=== PATIENT | male | born 1945 | race Caucasian/White ===

== ENCOUNTER 2016-11-19 13:44 | Observation (INO) | payer MEDICARE, BC ==
[2016-11-19] MEDS ORDERED: SODIUM CHLORIDE 0.9% 1,000 ML IV STA (16:30)
--- NOTE | 2016-11-19 16:35 | ED ---
General Adult HPI - General Chief complaint: Dizziness Stated complaint: Near-syncope Time Seen by Provider: 11/19/16 16:18 Source: patient, RN notes reviewed Mode of arrival: ambulatory Limitations: no limitations - History of Present Illness Initial comments: Patient is a pleasant 71-year-old male presenting to the emergency department for near syncopal episode. Episode occurred around noon. Patient was sitting watching TV. Patient suddenly felt flushed all over and felt like she was going to pass out. Symptoms lasted for a few seconds then resolved. Patient is currently symptom-free. No history of similar symptoms previously. Patient did have a stress test that was done a month ago and reported as negative to him. No chest pain or palpitations. No dyspnea. No confusion. Patient felt like he couldn't move during the episode. - Related Data Home Medications Medication Instructions Recorded Confirmed Aspirin 81 mg PO DAILY 12/04/14 11/19/16 Ezetimibe [Zetia] 10 mg PO DAILY 12/04/14 11/19/16 Famotidine [Pepcid] 20 mg PO DAILY 12/04/14 11/19/16 Fish Oil/Dha/Epa [Fish Oil 1,200 1 cap PO HS 12/04/14 11/19/16 mg Fish Oil] Folic Acid 400 mcg PO DAILY 12/04/14 11/19/16 Isosorbide Mononitrate ER [Imdur] 60 mg PO DAILY 12/04/14 11/19/16 Metoprolol Tartrate [Lopressor] 12.5 mg PO HS 12/04/14 11/19/16 Multivitamin [Men's Multi-Vitamin] 1 tab PO DAILY 12/04/14 11/19/16 Pravastatin Sodium [Pravachol] 20 mg PO HS 12/04/14 11/19/16 Ubidecarenone [Co Q-10] 200 mg PO DAILY 12/04/14 11/19/16 metFORMIN HCL [Glucophage] 500 mg PO BID 12/04/14 11/19/16 Allergies Allergy/AdvReac Type Severity Reaction Status Date / Time morphine AdvReac BP very low Verified 11/19/16 16:35 Review of Systems ROS Statement: Those systems with pertinent positive or pertinent negative responses have been documented in the HPI. ROS Other: All systems not noted in ROS Statement are negative. Constitutional: Denies: fever Eyes: Denies: eye pain ENT: Denies: ear pain Respiratory: Denies: cough Cardiovascular: Denies: chest pain, palpitations Endocrine: Denies: fatigue Gastrointestinal: Denies: abdominal pain Genitourinary: Denies: dysuria Musculoskeletal: Denies: back pain Skin: Denies: rash Neurological: Denies: headache Past Medical History Past Medical History: Coronary Artery Disease (CAD), Diabetes Mellitus, GERD/ Reflux, Hyperlipidemia, Myocardial Infarction (NM), Osteoarthritis (OA), Prostate Disorder, Skin Disorder, Sleep Apnea/CPAP/BIPAP Additional Past Medical History / Comment(s): chronic sinusitis, gout, skin "breaks" on hands, enlarged prostate, Last Myocardial Infarction Date:: 1982 History of Any Multi-Drug Resistant Organisms: None Reported Past Surgical History: Coronary Bypass/CABG, Heart Catheterization With Stent, Hernia Repair, Orthopedic Surgery Additional Past Surgical History / Comment(s): CABG 1982, waldo cataracts., arthroscopy left knee, solitario's neuroma removed rt foot Past Anesthesia/Blood Transfusion Reactions: Previous Problems w/ Anesthesia Additional Past Anesthesia/Blood Transfusion Reaction / Comment(s): drop in BP after heart cath (from morphine) Date of Last Stent Placement:: 11/16/2005 Past Psychological History: No Psychological Hx Reported Smoking Status: Former smoker Past Alcohol Use History: None Reported Additional Past Alcohol Use History / Comment(s): quit smoking 1982, smoked for approx 30 yrs ago Past Drug Use History: None Reported - Past Family History Mother Family Medical History: Cancer Additional Family Medical History / Comment(s): colon General Exam Limitations: no limitations General appearance: alert, in no apparent distress Head exam: Present: atraumatic Eye exam: Present: normal appearance, PERRL, EOMI. Absent: nystagmus ENT exam: Present: normal oropharynx Neck exam: Present: normal inspection Respiratory exam: Present: normal lung sounds bilaterally Cardiovascular Exam: Present: regular rate, normal rhythm Expanded Peripheral pulses: 2+: Radial (R), Radial (L), Posterior Tibialis (R), Posterior Tibialis (L) GI/Abdominal exam: Present: soft. Absent: tenderness Extremities exam: Present: normal inspection. Absent: pedal edema, calf tenderness Neurological exam: Present: alert, oriented X3, CN II-XII intact. Absent: motor sensory deficit Expanded Patient oriented to: Present: person, place, time Speech: Present: fluid speech Cranial nerves: EOM's Intact: Normal, Facial Sensation: Normal Sensory exam: Upper Extremity Light Touch: Normal, Lower Extremity Light Touch: Normal Motor strength exam: RUE: 5, LUE: 5, RLE: 5, LLE: 5 Eye Response: (4) open spontaneously Motor Response: (6) obeys commands Verbal Response: (5) oriented Psychiatric exam: Present: normal affect, normal mood Skin exam: Present: normal color Course Vital Signs 11/19/16 13:54 Temperature 97.7 F Pulse Rate 74 Respiratory 18 Rate Blood Pressure 127/60 O2 Sat by Pulse 98 Oximetry Medical Decision Making - Medical Decision Making Patient reevaluated and resting comfortably in bed. Patient and family updated on results. Case discussed in detail with Dr. Dr. Carrillo, who will admit his patient. He also did see him in the emergency department. Consult for Dr. Lancaster. Repeat troponins. Patient does present with high suspicion for arrhythmia. Dr. Dr. Carrillo had similar concerns. - Lab Data Result diagrams: 11/19/16 16:22 11/19/16 16:22 Lab Results 11/19/16 11/19/16 11/19/16 Range/Units 16:22 16:22 16:22 WBC 8.7 (3.8-10.6) k/uL RBC 4.69 (4.30-5.90) m/uL Hgb 14.5 (13.0-17.5) gm/dL Hct 42.4 (39.0-53.0) % MCV 90.5 (80.0-100.0) fL MCH 31.0 (25.0-35.0) pg MCHC 34.2 (31.0-37.0) g/dL RDW 12.8 (11.5-15.5) % Plt Count 234 (150-450) k/uL Neutrophils % 56 % Lymphocytes % 28 % Monocytes % 7 % Eosinophils % 4 % Basophils % 1 % Neutrophils # 4.8 (1.3-7.7) k/uL Lymphocytes # 2.4 (1.0-4.8) k/uL Monocytes # 0.6 (0-1.0) k/uL Eosinophils # 0.4 (0-0.7) k/uL Basophils # 0.1 (0-0.2) k/uL PT (9.0-12.0) sec INR (<1.1) APTT (22.0-30.0) sec Sodium 140 (137-145) mmol/L Potassium 4.6 (3.5-5.1) mmol/L Chloride 104 (98-107) mmol/L Carbon Dioxide 24 (22-30) mmol/L Anion Gap 12 mmol/L BUN 16 (9-20) mg/dL Creatinine 0.96 (0.66-1.25) mg/dL Est GFR (MDRD) Af Amer >60 (>60 ml/min/1.73 sqM) Est GFR (MDRD) Non-Af >60 (>60 ml/min/1.73 sqM) Glucose 90 (74-99) mg/dL Calcium 9.5 (8.4-10.2) mg/dL Total Bilirubin 0.7 (0.2-1.3) mg/dL AST 27 (17-59) U/L ALT 35 (21-72) U/L Alkaline Phosphatase 70 (38-126) U/L Total Creatine Kinase 41 L (55-170) U/L CK-MB (CK-2) 0.4 (0.0-2.4) ng/mL CK-MB (CK-2) Rel Index 1.0 Troponin I <0.012 (0.000-0.034) ng/mL Total Protein 7.2 (6.3-8.2) g/dL Albumin 4.4 (3.5-5.0) g/dL Urine Color Urine Appearance (Clear) Urine pH (5.0-8.0) Ur Specific [place] (1.001-1.035) Urine Protein (Negative) Urine Glucose (UA) (Negative) Urine Ketones (Negative) Urine Blood (Negative) Urine Nitrite (Negative) Urine Bilirubin (Negative) Urine Urobilinogen (<2.0) mg/dL Ur Leukocyte Esterase (Negative) 11/19/16 11/19/16 Range/Units 16:22 17:09 WBC (3.8-10.6) k/uL RBC (4.30-5.90) m/uL Hgb (13.0-17.5) gm/dL Hct (39.0-53.0) % MCV (80.0-100.0) fL MCH (25.0-35.0) pg MCHC (31.0-37.0) g/dL RDW (11.5-15.5) % Plt Count (150-450) k/uL Neutrophils % % Lymphocytes % % Monocytes % % Eosinophils % % Basophils % % Neutrophils # (1.3-7.7) k/uL Lymphocytes # (1.0-4.8) k/uL Monocytes # (0-1.0) k/uL Eosinophils # (0-0.7) k/uL Basophils # (0-0.2) k/uL PT 10.1 (9.0-12.0) sec INR 1.0 (<1.1) APTT 24.1 (22.0-30.0) sec Sodium (137-145) mmol/L Potassium (3.5-5.1) mmol/L Chloride (98-107) mmol/L Carbon Dioxide (22-30) mmol/L Anion Gap mmol/L BUN (9-20) mg/dL Creatinine (0.66-1.25) mg/dL Est GFR (MDRD) Af Amer (>60 ml/min/1.73 sqM) Est GFR (MDRD) Non-Af (>60 ml/min/1.73 sqM) Glucose (74-99) mg/dL Calcium (8.4-10.2) mg/dL Total Bilirubin (0.2-1.3) mg/dL AST (17-59) U/L ALT (21-72) U/L Alkaline Phosphatase (38-126) U/L Total Creatine Kinase (55-170) U/L CK-MB (CK-2) (0.0-2.4) ng/mL CK-MB (CK-2) Rel Index Troponin I (0.000-0.034) ng/mL Total Protein (6.3-8.2) g/dL Albumin (3.5-5.0) g/dL Urine Color Light Yellow Urine Appearance Clear (Clear) Urine pH 5.0 (5.0-8.0) Ur Specific [place] 1.008 (1.001-1.035) Urine Protein Negative (Negative) Urine Glucose (UA) Negative (Negative) Urine Ketones Negative (Negative) Urine Blood Negative (Negative) Urine Nitrite Negative (Negative) Urine Bilirubin Negative (Negative) Urine Urobilinogen <2.0 (<2.0) mg/dL Ur Leukocyte Esterase Negative (Negative) - Radiology Data Interpreted by me: Chest x-ray interpreted by myself shows no acute process. Postoperative change. Disposition Clinical Impression: Near syncope Disposition: ADMITTED IP TO THIS HOSP
[2016-11-19 16:54] LABS: Basophils # (A) 0.1 k/uL (0-0.2); Basophils % (A) 1 %; CH 32.2; CHCM 35.7; Eosinophils # (A) 0.4 k/uL (0-0.7); Eosinophils % (A) 4 %; HCT 42.4 % (39.0-53.0); HGB 14.5 gm/dL (13.0-17.5); Luc # (Auto) 0.25; Luc % (Auto) 3; Lymphocytes # (A) 2.4 k/uL (1.0-4.8); Lymphocytes % (A) 28 %; MCHC 34.2 g/dL (31.0-37.0); MCV 90.5 fL (80.0-100.0); Mean Platelet Volume 7.7; Monocytes # (A) 0.6 k/uL (0-1.0); Monocytes % (A) 7 %; Neutrophils # (A) 4.8 k/uL (1.3-7.7); Neutrophils % (A) 56 %; RBC 4.69 m/uL (4.30-5.90); RDW 12.8 % (11.5-15.5); WBC 8.7 k/uL (3.8-10.6); WBC (Perox) 8.46
[2016-11-19 17:05] LABS: ALT 35 U/L (21-72); AST 27 U/L (17-59); Alkaline Phosphatase 70 U/L (38-126); Anion Gap 12 mmol/L; Blood Urea Nitrogen 16 mg/dL (9-20); Calcium 9.5 mg/dL (8.4-10.2); Carbon Dioxide 24 mmol/L (22-30); Chloride 104 mmol/L (98-107); Glucose 90 mg/dL (74-99); Non-African American GFR(MDRD) >60 (>60 ml/min/1.73 sqM); Potassium 4.6 mmol/L (3.5-5.1); Sodium 140 mmol/L (137-145); Total Bilirubin 0.7 mg/dL (0.2-1.3); Total Protein 7.2 g/dL (6.3-8.2)
[2016-11-19 17:20] LABS: Creatine Kinase 41 U/L (55-170)
[2016-11-19 17:21] LABS: Appearance,Urine Clear (Clear); Bilirubin,Urine Negative (Negative); Glucose,Urine (UA) Negative (Negative); Ketones,Urine Negative (Negative); Leukocyte Esterase,Urine Negative (Negative); Nitrite,Urine Negative (Negative); Protein,Urine Negative (Negative); Specific Gravity,Urine 1.008 (1.001-1.035); UA Billing (MACRO vs. MICRO) CHEM; Urobilinogen,Urine <2.0 mg/dL (<2.0)
[2016-11-19 17:24] LABS: Partial Thromboplastin Time 24.1 sec (22.0-30.0); Prothrombin Time 10.1 sec (9.0-12.0)
[2016-11-19 17:31] LABS: Creatine Kinase MB 0.4 ng/mL (0.0-2.4); Troponin I <0.012 ng/mL (0.000-0.034)
[2016-11-19] MEDS ORDERED: NALOXONE 0.4 MG/ML 1 ML VIAL IV PRN (17:42)
[2016-11-19] MEDS ORDERED: SODIUM CHLORIDE 0.9% 1,000 ML IV SCH (17:45)
--- NOTE | 2016-11-19 17:48 | XR ---
EXAMINATION TYPE: XR chest 2V DATE OF EXAM: 11/19/2016 5:24 PM COMPARISON: March 13, 2011 HISTORY: Syncope TECHNIQUE: Frontal and lateral views of the chest are obtained. FINDINGS: Sternal sutures and mediastinal clips and EKG leads are noted. There is no focal air space opacity, pleural effusion, or pneumothorax seen. The cardiac silhouette size is within normal limit s. The osseous structures are intact. IMPRESSION: No acute cardiopulmonary process.
--- NOTE | 2016-11-19 18:18 | CT ---
EXAMINATION TYPE: CT brain wo con DATE OF EXAM: 11/19/2016 6:05 PM COMPARISON: NONE HISTORY: Near syncope today. CT DLP: 1174 mGycm Automated exposure control for dose reduction was used. FINDINGS: There is no acute intracranial hemorrhage, mass effect, or midline shift identified. The ventricles and sulci are within normal limits in size. Atherosclerotic calcifications are noted throughout the anterior circulation and the posterior circul ation bilaterally. The globes are intact and the visualized sinuses are clear. IMPRESSION: NO ACUTE PROCESS.
[2016-11-19 19:20] LABS: Glucose,Whole Blood 84 mg/dL (75-99)
[2016-11-19 21:28] VITALS: BMI 34.9
[2016-11-19] MEDS ORDERED: METOPROLOL TARTRATE 12.5 MG TAB PO SCH (21:45)
[2016-11-19] MEDS ORDERED: PRAVASTATIN SODIUM 20 MG TAB PO SCH (21:45)
[2016-11-19] MEDS: metFORMIN 500 MG TAB PO SCH (22:13)
[2016-11-20 06:49] LABS: Glucose,Whole Blood 110 mg/dL (75-99)
--- NOTE | 2016-11-20 09:10 | US ---
EXAMINATION TYPE: US carotid duplex BILAT DATE OF EXAM: 11/20/2016 8:26 AM COMPARISON: NONE CLINICAL HISTORY: Near-syncope. Patient states almost passing out yesterday and feeling flushed EXAM MEASUREMENTS: RIGHT: Peak Systolic Velocity (PSV) cm/sec ----- Right CCA: 77.9 ----- Right ICA: 72.1 ----- Right ECA: 168.6 ICA/CCA ratio: 0.9 RIGHT: End Diastole cm/sec ----- Right CCA: 17.5 ----- Right ICA: 18.0 ----- Right ECA: 20.9 LEFT: Peak Systolic Velocity (PSV) cm/sec ----- Left CCA: 82.3 ----- Left ICA: 93.1 ----- Left ECA: 117.7 ICA/CCA ratio: 1.1 LEFT: End Diastole cm/sec ----- Left CCA: 9.8 ----- Left ICA: 32.2 ----- Left ECA: 6.3 VERTEBRALS (direction of flow): Right Vertebral: Antegrade Left Vertebral: Antegrade Plaque seen in bilateral bulbs. Plaque seen in proximal ICA. Bilateral wall thickening. Elevated r ight ECA. No significant stenosis seen. Small posterior plaque seen in prox/mid left CCA. IMPRESSION: 1. I do not see evidence of a hemodynamically significant stenosis in either common or internal carot id artery. 2. Elevated flow, right ECA. Criteria for Assigning % of Stenosis / Diameter reduction (Estimation based on the indirect measurements of the internal carotid artery velocities (ICA PSV). 1. Normal (no stenosis)=ICA PSV < 125 cm/s: ratio < 2.0: ICA EDV<40 cm/s. 2. Less than 50% stenosis=ICA PSV < 125 cm/s: ratio < 2.0: ICA EDV<40 cm/s. 3. 50 to 69% stenosis=ICA PSV of 125 to 230 cm/s: ration 2.0 ? 4.0: ICA EDV 40-100 cm/s. 4. Greater than 70% stenosis to near occlusion= ICA PSV > 230 cm/s: ratio > 4.0: ICA EDV > 100 cm/s. 5. Near occlusion= ICA PSV velocities may be low or undetectable: variable ratio and ICA EDV. 6. Total occlusion=unable to detect flow.
[2016-11-20] MEDS ORDERED: ASPIRIN 81 MG CHEW PO SCH (09:30)
--- NOTE | 2016-11-20 10:09 | CONS ---
DATE OF CONSULTATION: Mr. Neely is a 71-year-old male with a known history of coronary artery disease, who presented with an episode of dizziness. He was at home sitting when he had a warm feeling with symptoms of dizziness and presyncope, lasted for 10 seconds. He felt swishing in his ears and subsequently the symptoms resolved and he had no further symptoms. He had no associated chest pain. No palpitations. He has no change in his breathing. He felt weak in both hands. Patient has a known history of coronary artery disease, status post coronary artery bypass grafting and percutaneous revascularization of his left circumflex in 2005. He underwent repeat cardiac catheterization in November 2008. At that time he had 100% occluded right coronary artery and the graft to the right coronary artery was occluded. He had a stress test performed on the september of this year that revealed fixed inferobasal wall defect and his ejection fraction by echocardiography was 50%. He denies any change in his breathing. His activity is somewhat limited. He has no exertional chest pain. He has no history of arrhythmia. No PND. No orthopnea. No peripheral edema. No syncope. His coronary risk factors are remarkable for hypertension, hyperlipidemia, diabetes and a family history of premature coronary artery disease. His medications at home include metformin 500 mg twice a day, pravastatin 20 mg daily, metoprolol 12.5 mg daily, isosorbide mononitrate 60 mg daily, Zetia 10 mg daily, aspirin one a day. REVIEW OF SYSTEMS: RESPIRATORY SYSTEM: He has mild dyspnea on exertion. No wheezing. No cough. GI SYSTEM: No recent GI bleeding. No peptic ulcer disease. SYSTEM: No dysuria or hematuria. NERVOUS SYSTEM: No history of stroke or seizure. PHYSICAL EXAMINATION: He is a 71-year-old male, alert, oriented, in no apparent distress. Blood pressure 135/70 with the heart rate in the 70s. HEAD: Normocephalic. EYES: Sclerae anicteric. NECK: Good upstroke. No bruit. No jugular venous distention. LUNGS: Clear to auscultation. HEART: Regular rate rhythm. S1, S2, no S3, no rub with a systolic murmur 2/6 heard at the base. No diastolic murmur. ABDOMEN: Soft, obese, nontender, positive bowel sounds. No organomegaly. EXTREMITIES: No edema. Intact distal pulses. Lab data revealed a troponin less than 0.012 for 3 samples. BUN and creatinine 16 and 0.96. Hemoglobin of 14.5. EKG revealed a sinus mechanism, normal axis and intervals with evidence of an inferior myocardial infarction. CT scan of the head revealed no acute changes. Chest x-ray shows no infiltrate. IMPRESSION: 1. Episode of dizziness of unknown etiology. No evidence to suggest arrhythmia or ischemia. 2. History of coronary artery disease, stable with no evidence of inducible ischemia by recent stress test. 3. Hypertension. 4. Hyperlipidemia. 5. Diabetes mellitus. RECOMMENDATIONS: From the cardiac standpoint, the patient is stable, I see no indication for further cardiac workup at this time. He will be followed as an outpatient as scheduled. Please feel free to call us for any questions.
[2016-11-20] MEDS: metFORMIN 500 MG TAB PO SCH (11:05)
[2016-11-20 11:50] VITALS: BP 116/71; PULSE 67; RESP 16; TEMP 97.5
[2016-11-20 12:13] LABS: Glucose,Whole Blood 96 mg/dL (75-99)
[2016-11-20 12:48] LABS: Hemoglobin A1C 5.9 % (4.2-6.1)
--- NOTE | 2016-11-20 17:48 | P.DS ---
Providers Date of admission: 11/19/16 17:42 Attending physician: Tino Carrillo Primary care physician: [facility] Course: This is a 71-year-old male one of Dr. Carrillo with a previous medical history significant for coronary artery disease status post coronary artery bypass graft with Percocet and his current intervention and stent placement of the LCx back in 2005, patient underwent repeat cardiac catheterization back in November 2008 at that time he had 100% occluded right coronary artery and graft to the right coronary artery was occluded, he shouldn't also had a stress test performed on 09/27/2016 and that revealed fixed inferobasal wall defect and ejection fraction by echocardiogram was 50%, patient apparently presented to the emergency department at [facility] with episode of dizziness and he was at home sitting when he had a warm feeling and symptoms of dizziness and presyncope lasted according to the patient for about 10 seconds that he felt swishing sound in his ears subsequently the symptoms resolved and he had no further symptoms at that time. He had no chest pain with that he had no palpitation he had no shortness of breath he felt generally weak in both hands patient went to the emergency department at [facility] where he had a computed tomography scan of the brain that did not show any evidence of acute of normalities, chest x-ray was negative, cardiac enzymes are negative, patient was seen and evaluated by cardiology it was recommended for the patient to be discharged home and no further cardiac workup is needed at this point in time. Patient will be discharged home today with final diagnoses: 1. Dizziness likely vasovagal. 2. CAD post CABG and PCI of the LCx. 3. Hypertension and hypertensive cardiovascular disease. 4. Hyperlipemia. 5. Diabetes mellitus type 2. 6. Family history of coronary artery disease. Patient Condition at Discharge: Good Plan - Discharge Summary Discharge Medication List Aspirin 81 mg PO DAILY 12/04/14 [History] Ezetimibe [Zetia] 10 mg PO DAILY 12/04/14 [History] Famotidine [Pepcid] 20 mg PO DAILY 12/04/14 [History] Fish Oil/Dha/Epa [Fish Oil 1,200 mg Fish Oil] 1 cap PO HS 12/04/14 [History] Folic Acid 400 mcg PO DAILY 12/04/14 [History] Isosorbide Mononitrate ER [Imdur] 60 mg PO DAILY 12/04/14 [History] Metoprolol Tartrate [Lopressor] 12.5 mg PO HS 12/04/14 [History] Multivitamin [Men's Multi-Vitamin] 1 tab PO DAILY 12/04/14 [History] Pravastatin Sodium [Pravachol] 20 mg PO HS 12/04/14 [History] Ubidecarenone [Co Q-10] 200 mg PO DAILY 12/04/14 [History] metFORMIN HCL [Glucophage] 500 mg PO BID 12/04/14 [History] Follow up Appointment(s)/Referral(s): Blaze Lancaster MD [STAFF PHYSICIAN] - 1 Week (patient already has an existing appointment booked with Dr. Lancaster and as per Dr. Lancaster, to foolow up as scheduled.) Tino Carrillo MD [Primary Care Provider] - 1-2 days Patient Instructions/Handouts: Syncope (GEN) Discharge Disposition: HOME SELF-CARE
[2016-11-21] MEDS ORDERED: ISOSORBIDE MONONITRATE ER 60 MG TAB.ER.24H PO SCH (09:00)
[2016-11-21] MEDS ORDERED: EZETIMIBE 10 MG TAB PO SCH (09:00)
== END 2016-11-20 13:55 | disposition home or self-care (01) ==
LOC: EC 13:44 → 3OBS 17:42
PROVIDERS: ADMIT Internal Medicine Geriatric Medicine; ATTEND Internal Medicine Geriatric Medicine
DX: R42 Dizziness and giddiness (principal); I25.10 Atherosclerotic heart disease of native coronary artery without angina pectoris; Z95.1 Presence of aortocoronary bypass graft; I11.9 Hypertensive heart disease without heart failure; E78.5 Hyperlipidemia, unspecified; E11.9 Type 2 diabetes mellitus without complications; G47.30 Sleep apnea, unspecified; I25.2 Old myocardial infarction; K21.9 Gastro-esophageal reflux disease without esophagitis; Z79.82 Long term (current) use of aspirin; Z79.84 Long term (current) use of oral hypoglycemic drugs; Z79.899 Other long term (current) drug therapy; Z87.891 Personal history of nicotine dependence
CPT/HCPCS: 99285 ×2; 93005 ×2; 36415; 80053; 83036; 82550; 82553; 84484 ×2; 85025; 85610; 85730; 81003; 71020; 93880; 70450; G0378 ×2